=== PATIENT | male | born 1965 | race Hispanic/Latino ===

== ENCOUNTER 2017-11-28 20:47 | Emergency (ER) | payer MEDICAID ==
[2017-11-28 21:18] VITALS: BP 203/125; PULSE 112; RESP 22; TEMP 99.5; O2SAT 97
--- NOTE | 2017-11-28 22:12 | C.PDOC ---
History Of Present Illness 52 year old male is brought to the ED by EMS and Police for a psychiatric evaluation. Patient reports he made an inappropriate comment on [employer] about being suicidal and 20 minutes later he had EMS and Police knocking on his door. Patient reports he was brought against his will to the ED. Patient is visibly agitated, argumentative and combative. Patient denies SI, HI, hallucinations. Time Seen by Provider: 11/28/17 22:05 Chief Complaint (Nursing): Psychiatric Evaluation History Per: Patient, EMS History/Exam Limitations: no limitations Onset/Duration Of Symptoms: Hrs Current Symptoms Are (Timing): Still Present Suicide/Self Injury Attempted (Context): None Modifying Factor(s): None Associated Symptoms: Agitation. denies: Depression, Suicidal Thoughts, Suicidal Plan Recent travel outside of the [place]: No Additional History Per: Patient, EMS, Law Enforcement Past Medical History Reviewed: Historical Data, Nursing Documentation, Vital Signs Vital Signs: Last Vital Signs Temp 99.5 F 11/28/17 21:00 Pulse 112 H 11/28/17 21:00 Resp 22 11/28/17 21:00 BP 203/125 H 11/28/17 21:00 Pulse Ox 97 11/28/17 21:00 - Medical History PMH: No Chronic Diseases Denies: Diabetes, Hepatitis, HIV, HTN, Seizures, Sexually Transmitted Disease Surgical History: No Surg Hx Family History: States: Unknown Family Hx - Social History Hx Alcohol Use: Yes Hx Substance Use: No - Immunization History Hx Tetanus Toxoid Vaccination: No Hx Influenza Vaccination: No Hx Pneumococcal Vaccination: No Review Of Systems Constitutional: Negative for: Fever, Chills Cardiovascular: Negative for: Chest Pain Respiratory: Negative for: Shortness of Breath Gastrointestinal: Negative for: Nausea, Vomiting Psych: Negative for: Depression, Suicidal ideation Physical Exam - Physical Exam Appears: Non-toxic, Combative, Agitated Skin: Normal Color, Warm, Dry Head: Atraumatic, Normacephalic, No Laceration Eye(s): bilateral: Normal Inspection Neck: Normal ROM, Supple Extremity: Normal ROM, No Tenderness, No Swelling Neurological/Psych: Oriented x3, Normal Speech Gait: Steady ED Course And Treatment O2 Sat by Pulse Oximetry: 97 (ON RA) Pulse Ox Interpretation: Normal Medical Decision Making Medical Decision Making: Patient was evaluated by advertising layout worker who determined patient was non suicidal. Disposition Counseled Patient/Family Regarding: Diagnosis, Need For Followup - Disposition Disposition: HOME/ ROUTINE Disposition Time: 22:11 Condition: STABLE Instructions: Adjustment Disorder Forms: [employer] (Maori) - Clinical Impression Clinical Impression: Adjustment disorder - Scribe Statement The provider has reviewed the documentation as recorded by the Scribe Pancho Ferrari All medical record entries made by the Karenibe were at my direction and personally dictated by me. I have reviewed the chart and agree that the record accurately reflects my personal performance of the history, physical exam, medical decision making, and the department course for this patient. I have also personally directed, reviewed, and agree with the discharge instructions and disposition.
== END 2017-11-28 22:05 | disposition home or self-care (01) ==
LOC: C.ER 20:47
DX: F43.20 Adjustment disorder, unspecified (principal)